=== PATIENT | female | born 1955 | race Caucasian/White ===

== ENCOUNTER 2019-09-02 10:12 | Observation (INO) ==
[2019-09-02 10:49] LABS: Basophils % 0.2 %; Eosinophils # 0.1 K/mcL (0.0-0.6); Eosinophils % 0.9 %; Hematocrit 45.5 % (35.3-44.9); Hemoglobin 15.5 g/dL (11.5-15.4); Immature Granulocytes % 0.3 % (0-4); Lymphocytes # 1.4 K/mcL (0.6-4.6); Mean Corpuscular HGB Conc 34.1 g/dL (31.6-35.5); Mean Corpuscular Hemoglobin 32.2 pg (28.0-33.3); Mean Corpuscular Volume 94.6 fL (83.0-100.0); Mean Platelet Volume 11.1 fL (9.4-12.4); Monocytes # 1.2 K/mcL (0.0-1.3); Monocytes % 9.9 %; Neutrophils # 8.9 K/mcL (1.6-8.9); Platelet Count 285 K/mcL (140-400); Red Blood Count 4.81 M/mcL (3.82-4.97); Red Cell Distribution Width 11.8 % (11.5-14.5); Segmented Neutrophils % 76.7 %; White Blood Count 11.6 K/mcL (4.3-11.1)
[2019-09-02 11:08] LABS: BUN/Creatinine Ratio 16 (6-26); Blood Urea Nitrogen 14 mg/dL (8-23); Calcium 9.8 mg/dL (8.6-10.3); Carbon Dioxide 26 mEq/L (23-29); Chloride 103 mEq/L (98-107); Glucose 106 mg/dL (70-105); Lipase 19 Units/L (11-82); Osmolality,Calculated 287 (280-300); Potassium 4.2 mEq/L (3.5-5.1); Sodium 138 mEq/L (136-145); eGFR For African Americans > 60 (> 60); eGFR For Non-African Americans > 60 (> 60)
[2019-09-02 11:37] LABS: Bilirubin,Urine Negative (Negative); Blood,Urine Negative (Negative); Clarity,Urine Clear (Clear); Color,Urine Yellow (Yellow); Glucose,Urine (UA) Normal (Normal); Ketones,Urine Negative (Negative); Leukocyte Esterase,Urine Negative (Negative); Nitrite,Urine Negative (Negative); PH,Urine 5.5 pH Units (5.0-8.0); Protein,Urine Negative (Neg-Trace); Specific Gravity,Urine 1.015 (1.010-1.025); Urobilinogen,Urine Normal (Normal)
[2019-09-02] MEDS ORDERED: Ondansetron 4 MG/2 ML VIAL IVP ONE (14:51)
[2019-09-02] MEDS ORDERED: *HR* HYDROmorphone (PF) 1 MG/ML SYRINGE IVP PRN (14:51)
[2019-09-02] MEDS ORDERED: *HR* Meperidine 25 MG/ML SYRINGE IVP PRN (14:51)
[2019-09-02] MEDS ORDERED: CefOXitin 1,000 MG VIAL ONE (14:57)
[2019-09-02] MEDS ORDERED: CefOXitin 2,000 MG VIAL ONE (15:14)
[2019-09-02] MEDS ORDERED: Acetaminophen IV 1,000 MG/100 ML INFUS..BTL ONE (15:23)
[2019-09-02] MEDS ORDERED: Ondansetron 4 MG/2 ML VIAL ONE (15:46)
[2019-09-02] MEDS ORDERED: Dexamethasone 4 MG/ML VIAL ONE (15:46)
[2019-09-02] MEDS ORDERED: Lidocaine -MPF 2% 2 ML VIAL ONE (15:46)
[2019-09-02] MEDS ORDERED: *HR* PHENYLEPHRINE 1,000 MCG/10 ML SYRINGE IVP ONE (15:46)
[2019-09-02] MEDS ORDERED: *HR* Propofol 200 MG/20 ML VIAL IVP ONE (15:46)
[2019-09-02] MEDS ORDERED: Lidocaine HCL 4 ML Topical Solution (Laryng-O-Jet Kit Sterile Pak) TP ONE (15:46)
[2019-09-02] MEDS ORDERED: *HR* FentaNYL (PF) 100 MCG/2 ML VIAL ONE ×2 (15:46→15:57)
[2019-09-02] MEDS ORDERED: *HR* Succinylcholine 200 MG/10 ML VIAL IVP ONE (15:46)
[2019-09-02] MEDS ORDERED: *HR* Rocuronium Bromide 50 MG/5 ML VIAL ONE (15:46)
[2019-09-02] MEDS ORDERED: cefOXitin 2,000 MG in 0.9 % Sodium Chloride Mini Bag 100 ML IVPB ONE (15:49)
[2019-09-02] MEDS ORDERED: *HR* OxyCODONE Immed Rel 5 MG TABLET PO PRN (16:50)
[2019-09-02] MEDS ORDERED: *HR* OxyCODONE/APAP 5/325 TABLET PO PRN (17:29)
[2019-09-02] MEDS ORDERED: *HR* Metoprolol 5 MG/5 ML VIAL IVP PRN (17:29)
[2019-09-02] MEDS: 0.9 % Sodium Chloride 1,000 ML IVC SCH (19:07)
[2019-09-02] MEDS: cefOXitin 2,000 MG in Water for inj. (sterile) 20 ML IVP SCH (22:38)
[2019-09-03] MEDS: cefOXitin 2,000 MG in Water for inj. (sterile) 20 ML IVP SCH (05:44)
[2019-09-03 07:58] VITALS: BP 93/53
[2019-09-03] MEDS: 0.9 % Sodium Chloride 1,000 ML IVC SCH (09:05)
[2019-09-03] MEDS ORDERED: FLU Vac QV 19-20 (6Month+)/PF 0.5 ML SYRINGE IM ONE (11:29)
== END 2019-09-03 13:56 | disposition home or self-care (01) ==
LOC: EMEROOARM 10:12 → 3ANU 10:12
PROVIDERS: ADMIT Surgery; ATTEND Surgery